=== PATIENT | male | born 1955 | race Caucasian/White ===

== ENCOUNTER → 2024-04-21 07:30 | Outpatient (REF) | payer MEDICARE, OTHER, SELFPAY ==
[2024-04-21 09:18] LABS: PSA, Total - Diagnostic < 0.06 ng/ml (0.0-4.0)
== END ==
LOC: REG 07:30
PROVIDERS: ATTENDING PHYSICIAN Family Medicine Geriatric Medicine; FAMILY PHYSICIAN Internal Medicine
DX: C61 Malignant neoplasm of prostate (principal)
CPT/HCPCS: 36415; 84153

== ENCOUNTER → 2025-04-30 14:51 | Outpatient (REF) | payer MEDICARE, OTHER, SELFPAY ==
[2025-04-30 15:55] LABS: % Basophils 0.9 % (0-2); % Immature Granulocytes 0.4 % (0-0.5); % Lymphocytes 20.1 % (20.5-51.1); % Monocytes 11.4 % (1.7-9.3); % Neutrophils 64.2 % (42.2-75.2); Absolute Basophils 0.1 10^3/uL (0-0.2); Absolute Eosinophils 0.2 10^3/uL (0-0.7); Absolute Lymphocytes 1.1 10^3/uL (1.2-3.4); Absolute Monocytes 0.6 10^3/uL (0.1-0.6); Absolute Neutrophils 3.5 10^3/uL (1.4-6.5); Hematocrit 40.7 % (39.0-52.0); Hemoglobin 13.4 g/dL (13.0-18.0); Mean Corp Hgb Conc. 32.9 g/dL (33.0-37.0); Mean Corpuscular Hgb 29.6 pg (27.0-31.0); Mean Corpuscular Volume 89.8 fL (80.0-94.0); Mean Platelet Volume 8.7 fL (7.4-10.4); Nucleated Red Blood Cells % 0 % (-); Platelet Count 235 10^3/uL (130-400); Red Blood Cell Count 4.53 10^6/uL (4.70-6.10); White Blood Cell Count 5.4 10^3/uL (4.8-10.8)
[2025-04-30 16:14] LABS: ALT (SGPT) 47 U/L (0-50); AST (SGOT) 42 U/L (17-59); Albumin 5.1 g/dl (3.5-5.0); Alkaline Phosphatase 40 U/L (38-126); Blood Urea Nitrogen 14 mg/dl (9-20); Calcium 9.9 mg/dl (8.4-10.2); Carbon Dioxide 31 mmol/L (22-30); Chloride 100 mmol/L (98-107); Glucose 94 mg/dl (70-99); Potassium 4.5 mmol/L (3.5-5.1); Sodium 138 mmol/L (135-145); Total Protein 7.6 g/dl (6.3-8.2); eGFR > 60.00
[2025-04-30 17:04] LABS: PSA, Total - Diagnostic < 0.06 ng/ml (0.0-4.0); TSH Reflex To Free T4 1.75 uIU/ml (0.47-4.68)
== END ==
LOC: RCS 14:51
PROVIDERS: ATTENDING PHYSICIAN Family Medicine Geriatric Medicine; FAMILY PHYSICIAN Internal Medicine Geriatric Medicine; OTHER PHYSICIAN Nurse Practitioner Family
DX: I10 Essential (primary) hypertension (principal); C61 Malignant neoplasm of prostate; S70.261A Insect bite (nonvenomous), right hip, initial encounter; W57.XXXA Bitten or stung by nonvenomous insect and other nonvenomous arthropods, initial encounter; Z12.5 Encounter for screening for malignant neoplasm of prostate
CPT/HCPCS: 36415; 80053; 84153; 84443; 85025; 86618; 93005

== ENCOUNTER → 2025-10-16 07:31 | Outpatient (REF) | payer MEDICARE, OTHER, SELFPAY ==
[2025-10-16 08:07] LABS: Hematocrit 45.6 % (39.0-52.0); Hemoglobin 14.9 g/dL (13.0-18.0); Mean Corp Hgb Conc. 32.7 g/dL (33.0-37.0); Mean Corpuscular Volume 91.8 fL (80.0-94.0); Nucleated Red Blood Cells % 0 % (-); Platelet Count 331 10^3/uL (130-400); Red Cell Dist. Width 12.8 % (11.5-14.5)
[2025-10-16 08:38] LABS: ALT (SGPT) 46 U/L (0-50); AST (SGOT) 42 U/L (17-59); Albumin 4.8 g/dl (3.5-5.0); Alkaline Phosphatase 74 U/L (38-126); Blood Urea Nitrogen 11 mg/dl (9-20); Calcium 9.9 mg/dl (8.4-10.2); Carbon Dioxide 28 mmol/L (22-30); Chloride 99 mmol/L (98-107); Glucose 88 mg/dl (70-99); HDL Cholesterol 96 mg/dl; LDL Cholesterol, Calculated 85 mg/dl; Potassium 4.7 mmol/L (3.5-5.1); Sodium 135 mmol/L (135-145); Total Protein 7.6 g/dl (6.3-8.2); Very Low Density Lipoprotein 17 mg/dl (0-30); eGFR > 60.00
[2025-10-16 09:04] LABS: PSA, Total - Diagnostic < 0.06 ng/ml (0.0-4.0)
[2025-10-16 16:28] LABS: Lyme Antibody Screen, EIA Negative (Negative)
== END ==
LOC: RAD 07:31
PROVIDERS: ATTENDING PHYSICIAN Internal Medicine
DX: M17.12 Unilateral primary osteoarthritis, left knee (principal); M79.10 Myalgia, unspecified site; C61 Malignant neoplasm of prostate; E78.2 Mixed hyperlipidemia; E66.9 Obesity, unspecified; I48.0 Paroxysmal atrial fibrillation
CPT/HCPCS: 73564; 80053; 80061; 82550; 84153; 85025; 86618

== ENCOUNTER → 2025-11-07 11:57 | Outpatient (REF) | payer MEDICARE, OTHER, SELFPAY | LOC: PAVMRI 11:57 | PROVIDERS: ATTENDING PHYSICIAN Internal Medicine | DX: M17.12 Unilateral primary osteoarthritis, left knee (principal); M25.569 Pain in unspecified knee | CPT/HCPCS: 73721 ==